=== PATIENT | female | born 1980 | race African-American/Black ===

== ENCOUNTER 2018-02-26 18:08 | Emergency (ER) | payer MEDICAID ==
[~2018-02-26] VITALS: Ht 160 cm; Wt 69.4 kg
[~2018-02-26 18:08] MED LIST: ZOFRAN ODT4 MG ORAL
[2018-02-26 18:30] VITALS: BP 110/78
--- NOTE | 2018-02-26 18:35 | NUR ---
ED Nurse Note: pt walked in to ED due to middle lower abdominal pain that started about 3 hrs ago. pt denies nausea or diarrheas. just c/o 3 episodes of vomiting prior to visit. per pt, it was indigestive food. pt denies eat raw food or take new meds. per pt, just start cycle but never had this bad pain before. per pt, pain comes and goes, throbbing and stabbing when it comes. AAO x4. respirations even and non-labored noted. skin warm to touch. no open wound noted. pt appears to be restless and guarding noted. on classroom monitor. will wait for the further order.
--- NOTE | 2018-02-26 18:43 | Emergency Room Report ---
History of Present Illness General Chief Complaint: Abdominal Pain Source: Patient Present Illness HPI Patient presents with 3 hours of left lower quadrant pain. It's severe. She's had her ovary removed from that side and her fallopian tube removed and also her appendix at age 15. She's been able to move her bowels today denies dysuria or fever. She does have nausea but no vomiting. Pain rated 8/10, pressure and aching and constant. Came on fairly quickly. No URI sy, rashes, vaginal d/c. LNMP January and normal. No recent alcohol. Drinks wine occasionally. She denies history of renal stones. No vaginal discharge. No chills, chest pain, palpitations, shortness of breath, depression, visual changes, headache. Allergies: Coded Allergies: CODEINE (Verified Allergy, Unknown, 06/13/15) Patient History Past Medical History: see triage record Past Surgical History: appy, other - oopherectomy and tube removal Social History: Reports: smoking, alcohol use, drug use - [facility] Social History Narrative single Now: No Reviewed Nursing Documentation: PMH: Agreed; PSxH: Agreed Nursing Documentation-PMH Past Medical History: No History, Except For Review of Systems All Other Systems: negative except mentioned in HPI Physical Exam Vital Signs Date Time Temp Pulse Resp B/P (MAP) Pulse Ox O2 Delivery O2 Flow Rate FiO2 02/26/18 18:21 98.6 84 20 125/82 99 Room Air Sp02 EP Interpretation: reviewed, normal General Appearance: well appearing, GCS 15, mild distress Head: normocephalic Eyes: bilateral eye normal inspection, bilateral eye PERRL ENT: moist mucus membranes Neck: supple Respiratory: lungs clear, normal breath sounds Cardiovascular #1: regular rate, rhythm Cardiovascular #2: 2+ radial (R) Gastrointestinal: normal inspection, normal bowel sounds, non-distended, no rebound, guarding - LLQ, tenderness Genitourinary: no CVA tenderness Musculoskeletal: back normal, normal range of motion Neurologic: alert, oriented x3, grossly normal Psychiatric: other - in pain Skin: normal inspection, warm/dry Medical Decision Making Diagnostic Impression: Primary Impression: Abdominal pain Qualified Codes: R10.32 - Left lower quadrant pain Additional Impressions: Leukocytosis Qualified Codes: D72.828 - Other elevated white blood cell count Status post left oophorectomy Fibroid Qualified Codes: D25.9 - Leiomyoma of uterus, unspecified ER Course Patient presents with severe left lower quadrant pain acute in onset. Differential includes ectopic UTI, pyelonephritis, renal stone, diverticulitis amongst others. The fact that she's had her ovary removed from that side and fallopian tube makes ectopic less likely also she's on her period. The patient will be evaluated with labs and CT. She will get IV hydration and analgesia. Labs with leukocytosis. CMP unremarkable. Urinalysis clear. CT with renal cysts without stones. Uterine fibroid. No acute process identified. Ultrasound recommended. Repeat analgesia as significant pain but some improvement. Improved pain but still with LLQ guarding. Discussed with Dr. White at [place] who accepts the patient. Cefepime ordered. Patient improved but needing observation for leukocytosis and continued guarding. Etiology of abdominal pain unclear. Stable for transfer. Laboratory Tests Test 02/26/18 18:45 02/26/18 19:45 White Blood Count 12.4 K/UL (4.8-10.8) H Red Blood Count 3.69 M/UL (4.20-5.40) L Hemoglobin 12.2 G/DL (12.0-16.0) Hematocrit 34.2 % (37.0-47.0) L Mean Corpuscular Volume 93 FL (80-99) Mean Corpuscular Hemoglobin 33.1 PG (27.0-31.0) H Mean Corpuscular Hemoglobin Concent 35.7 G/DL (32.0-36.0) Red Cell Distribution Width 10.8 % (11.6-14.8) L Platelet Count 223 K/UL (150-450) Mean Platelet Volume 7.6 FL (6.5-10.1) Neutrophils (%) (Auto) 82.1 % (45.0-75.0) H Lymphocytes (%) (Auto) 10.2 % (20.0-45.0) L Monocytes (%) (Auto) 6.0 % (1.0-10.0) Eosinophils (%) (Auto) 1.2 % (0.0-3.0) Basophils (%) (Auto) 0.5 % (0.0-2.0) Prothrombin Time 10.6 SEC (9.30-11.50) Prothrombin Time INR 1.0 (0.9-1.1) PTT 28 SEC (23-33) Sodium Level 139 MMOL/L (136-145) Potassium Level 3.9 MMOL/L (3.5-5.1) Chloride Level 106 MMOL/L (98-107) Carbon Dioxide Level 23 MMOL/L (21-32) Anion Gap 10 mmol/L (5-15) Blood Urea Nitrogen 8 mg/dL (7-18) Creatinine 0.8 MG/DL (0.55-1.30) Estimate Glomerular Filtration Rate > 60 mL/min (>60) Glucose Level 112 MG/DL (74-106) H Calcium Level 8.7 MG/DL (8.5-10.1) Total Bilirubin 0.2 MG/DL (0.2-1.0) Aspartate Amino Transferase (AST) 18 U/L (15-37) Alanine Aminotransferase (ALT) 25 U/L (12-78) Alkaline Phosphatase 47 U/L (46-116) Total Protein 7.6 G/DL (6.4-8.2) Albumin 4.1 G/DL (3.4-5.0) Globulin 3.5 g/dL Albumin/Globulin Ratio 1.2 (1.0-2.7) Lipase 151 U/L (73-393) Urine Color Pale yellow Urine Appearance Clear Urine pH 7 (4.5-8.0) Urine Specific [place] 1.010 (1.005-1.035) Urine Protein Negative (NEGATIVE) Urine Glucose (UA) Negative (NEGATIVE) Urine Ketones Negative (NEGATIVE) Urine Blood 2+ (NEGATIVE) H Urine Nitrite Negative (NEGATIVE) Urine Bilirubin Negative (NEGATIVE) Urine Urobilinogen Normal MG/DL (0.0-1.0) Urine Leukocyte Esterase Negative (NEGATIVE) Urine RBC 5-10 /HPF (0 - 2) H Urine WBC 0-2 /HPF (0 - 2) Urine Squamous Epithelial Cells None /LPF (NONE/OCC) Urine Bacteria None /HPF (NONE) Urine HCG, Qualitative Negative (NEGATIVE) CT/MRI/US Diagnostic Results CT/MRI/US Diagnostic Results : Imaging Test Ordered: abd pelvis Impression No acute abnormality seen. Renal pelvic calyces likely benign cysts which are incompletely evaluated consider further characterization with MRI or ultrasound. Fibroid uterus Last Vital Signs Date Time Temp Pulse Resp B/P (MAP) Pulse Ox O2 Delivery O2 Flow Rate FiO2 02/27/18 00:15 98.1 80 15 122/69 100 Room Air 70 Status: improved Disposition: XFER SHT-TRM HOSP Condition: Serious Nestor Stewart MD Feb 26, 2018 18:43
[2018-02-26] MEDS ORDERED: Ketorolac 30mg Inj IV ONE (18:45)
[2018-02-26] MEDS ORDERED: Isovue-300 100ml vial INJ PRN (18:45)
[2018-02-26] MEDS ORDERED: Morphine Sulfate 4mg/ml Inj (IV/IM USE ONLY) IVP ONE ×2 (18:45→20:15)
--- NOTE | 2018-02-26 18:59 | NUR ---
HAND-OFF: Report given to Tucker Montenegro RN. endorsed to draw pink top, drug administer and urine sample collection.
--- NOTE | 2018-02-26 19:00 | NUR ---
ED Nurse Note: Received report from GENOVEVA Roque. Patient AO4. Reports pain 12/03. VSS.
[2018-02-26] MEDS ORDERED: Morphine Sulfate 4mg/ml Inj (IV/IM USE ONLY) ONE (19:07)
--- NOTE | 2018-02-26 19:15 | NUR ---
ED Nurse Note: Blood collected sent down to lab.
[2018-02-26 19:31] LABS: BASOPHILS % (AUTO) 0.5 % (0.0-2.0); EOSINOPHILS % (AUTO) 1.2 % (0.0-3.0); HEMATOCRIT 34.2 % (37.0-47.0); HEMOGLOBIN 12.2 G/DL (12.0-16.0); LYMPHOCYTES % (AUTO) 10.2 % (20.0-45.0); MEAN CORPUSCULAR VOLUME 93 FL (80-99); NEUTROPHILS % (AUTO) 82.1 % (45.0-75.0); PLATELET COUNT 223 K/UL (150-450); RED BLOOD COUNT 3.69 M/UL (4.20-5.40); RED CELL DISTRIBUTION WIDTH 10.8 % (11.6-14.8); WHITE BLOOD COUNT 12.4 K/UL (4.8-10.8)
[2018-02-26 19:44] VITALS: BP 122/69
--- NOTE | 2018-02-26 19:45 | NUR ---
ED Nurse Note: Urine collected and sent down to lab.
[2018-02-26 19:47] LABS: ANION GAP 10 mmol/L (5-15); BLOOD UREA NITROGEN 8 mg/dL (7-18); CALCIUM 8.7 MG/DL (8.5-10.1); CARBON DIOXIDE 23 MMOL/L (21-32); CHLORIDE 106 MMOL/L (98-107); CREATININE 0.8 MG/DL (0.55-1.30); POTASSIUM 3.9 MMOL/L (3.5-5.1); SODIUM 139 MMOL/L (136-145)
[2018-02-26 19:52] LABS: ALANINE AMINOTRANSFERASE 25 U/L (12-78); ALBUMIN 4.1 G/DL (3.4-5.0); ALBUMIN/GLOBULIN RATIO 1.2 (1.0-2.7); ALKALINE PHOSPHATASE 47 U/L (46-116); ASPARTATE AMINO TRANSFERASE 18 U/L (15-37); BILIRUBIN,TOTAL 0.2 MG/DL (0.2-1.0)
[2018-02-26 20:31] LABS: APPEARANCE,URINE CLEAR; BILIRUBIN, URINE NEGATIVE (NEGATIVE); COLOR,URINE PALE YELLOW; GLUCOSE, URINE (UA) NEGATIVE (NEGATIVE); KETONES,URINE NEGATIVE (NEGATIVE); LEUKOCYTE ESTERASE ,URINE NEGATIVE (NEGATIVE); NITRITE,URINE NEGATIVE (NEGATIVE); PH,URINE 7 (4.5-8.0); PROTEIN,URINE NEGATIVE (NEGATIVE); UROBILINOGEN,URINE NORMAL MG/DL (0.0-1.0)
--- NOTE | 2018-02-26 21:02 | NUR ---
ED Nurse Note: Patient back from imaging.
--- NOTE | 2018-02-26 22:30 | NUR ---
ED Nurse Note: Report given to Becky Dust Box Worker for [facility] [phone]
[2018-02-26] MEDS ORDERED: Cefepime HCl 1 GM in D5W 55 ML IVPB ONE (22:45)
--- NOTE | 2018-02-26 23:08 | NUR ---
ED Nurse Note: Report given to GENOVEVA Lopez. at [facility]. Patient to be admitted to room 770-1 under the care of MD Cindy.
--- NOTE | 2018-02-27 00:07 | NUR ---
ED Nurse Note: Report given to [facility] for [facility]. Pt AO4. NAD. VSS. All belongings taken with patient.
[2018-02-27 00:15] VITALS: BP 122/69
--- NOTE | 2018-02-28 15:48 | Diagnostic Imaging Report ---
Indication: Abdominal pain Technique: Continuous helical transaxial imaging of the abdomen and pelvis was obtained from the lung bases to the pubic symphysis during intravenous contrast administration. Coronal 2-D reformats were also obtained. Study obtained in a Siemens sensation [address] Automatic Exposure Control was utilized. Total Dose length Product (DLP): [address] Dose Index Volume (CTDIvol): 13.8 mGy Comparison: None Findings: Unusual cystic appearing lesions noted within the central aspects of both kidneys, likely parenchymal cysts. No hydronephrosis demonstrated. Uterine fibroids demonstrated. No evidence of bowel obstruction, free fluid or free air. The lung bases are clear. Solid organs appear unremarkable. Appendix not definite seen. A mild amount of free fluid noted within the pelvis. Uterus noted. Urinary bladder is nondistended. Suggestion of a right adnexal cyst possibly ovarian. Consider ultrasound for to clinically. The appendix is not definitely seen. There are no secondary signs of acute appendicitis. IMPRESSION: Cystic foci in the right adnexal region. Consider ultrasound as clinically warranted. Cystic foci suspected within the central aspects of both kidneys. Mild free fluid which may be physiologic. The CT scanner at [facility] is accredited by the [employer] and the scans are performed using dose optimization techniques as appropriate to a performed exam including Automatic Exposure control.
== END 2018-02-27 00:15 | disposition short-term general hospital (02) ==
LOC: EMR 18:55
DX: R10.32 Left lower quadrant pain (principal); D72.829 Elevated white blood cell count, unspecified; D25.9 Leiomyoma of uterus, unspecified; Z90.721 Acquired absence of ovaries, unilateral; Z88.5 Allergy status to narcotic agent; F12.90 Cannabis use, unspecified, uncomplicated
CPT/HCPCS: 36415; 74177; 80053; 81003; 81025; 83690; 85025; 85610; 85730; 86850; 86900; 86901; 96361; 96365; 96375; 96376; 99284; J0692; J1885; J2270; J2405; Q9967